=== PATIENT | female | born 1955 | race Caucasian/White ===

== ENCOUNTER 2022-08-19 18:25 | Emergency (ER) | payer MEDICARE, BC, SELFPAY ==
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
[2022-08-19 18:34] VITALS: BP 187/86; PULSE 85; RESP 14; TEMP 36.9; O2SAT 100
[2022-08-19 18:44] VITALS: BP 187/86; PULSE 85; RESP 14; TEMP 36.9; O2SAT 100
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
== END 2022-08-19 20:22 | disposition home or self-care (01) ==
PROVIDERS: Emergency Provider Nurse Practitioner; PCP Internal Medicine
DX: S90.31XA Contusion of right foot, initial encounter (principal); W03.XXXA Other fall on same level due to collision with another person, initial encounter; S52.135A Nondisplaced fracture of neck of left radius, initial encounter for closed fracture; S62.002A Unspecified fracture of navicular [scaphoid] bone of left wrist, initial encounter for closed fracture; I10 Essential (primary) hypertension; Z95.5 Presence of coronary angioplasty implant and graft; Z79.82 Long term (current) use of aspirin
CPT/HCPCS: 29105; 73030; 73080; 73110; 73630; 99214; A4565; G0463